=== PATIENT | male | born 2005 | race Caucasian/White ===

== ENCOUNTER 2025-03-03 12:05 | Emergency (ER) | payer OTHER ==
[2025-03-03] MEDS ORDERED: Boostrix 0.5 ML (Tdap) VIAL (>/=7 yrs of age) ONE (13:36)
[2025-03-03] MEDS ORDERED: Amoxicillin/Potassium Clav 875 MG TAB ONE (13:36)
== END 2025-03-03 15:05 | disposition home or self-care (01) ==
LOC: CSHERS 12:05
DX: S00.81XA Abrasion of other part of head, initial encounter (principal); S00.31XA Abrasion of nose, initial encounter; S00.00XA Unspecified superficial injury of scalp, initial encounter; J34.89 Other specified disorders of nose and nasal sinuses; Z23 Encounter for immunization; W22.8XXA Striking against or struck by other objects, initial encounter; Y93.72 Activity, wrestling
CPT/HCPCS: 70450; 70486; 90471; 90715